=== PATIENT | male | born 1970 | race Caucasian/White ===

== ENCOUNTER 2018-11-15 18:08 | Emergency (ER) | payer OTHER ==
[2018-11-15 18:15] VITALS: BP 151/89
--- NOTE | 2018-11-15 18:17 | EDPHY ---
H & P Stated Complaint: fever, body aches Time Seen by Provider: 11/15/18 18:17 - Personal History Current Tetanus/Diphtheria Vaccine: Yes Current Tetanus Diphtheria and Acellular Pertussis (TDAP): Yes - Medical/Surgical History Hx Asthma: No Hx Chronic Respiratory Disease: No Hx Diabetes: No Hx Cardiac Disease: Yes Hx Renal Disease: No Hx Cirrhosis: No Hx Alcoholism: No Hx HIV/AIDS: No Hx Splenectomy or Spleen Trauma: No Other PMH: htn, L knee surgery, L5-S1 fusion - Social History Smoking Status: Never smoked Constitutional: Initial Vital Signs Temperature (C) 38.3 C 11/15/18 18:13 Heart Rate 97 11/15/18 18:13 Respiratory Rate 16 11/15/18 18:13 Blood Pressure 151/89 H 11/15/18 18:13 O2 Sat (%) 94 11/15/18 18:13 O2 Delivery Mode Room Air Allergies/Adverse Reactions: codeine [Codeine] Allergy (Mild, Verified 11/15/18 18:12) Home Medications: Medication Instructions Recorded AMLODIPINE BESYLATE/BENAZEPRIL 03/18/14 Hydrochlorothiazide 03/18/14 Dayquil 11/15/18 Oseltamivir Phosphate [Tamiflu 75 75 mg PO BID #10 cap 11/15/18 mg (*)] Medical Decision Making ED Course/Re-evaluation: CHIEF COMPLAINT: Fever, body aches HISTORY OF PRESENT ILLNESS: The patient is a 47 y/o male complaining of fever and body aches onset several days ago. The patient has been taking care of his girlfriend and her daughter who both tested positive for the flu. Today he developed a fever and became concerned that the also had the flu. He denies receiving the influenza vaccination. No cough, headache, chest pain, shortness of breath, abdominal pain , urinary or bowel complaints, numbness, paresthesias. REVIEW OF SYSTEMS: A comprehensive 10 system review of systems is otherwise negative aside from elements mentioned in the history of present illness and medical decision making. PHYSICAL EXAM: HR, BP, O2 Sat, RR. Temp noted General Appearance: Alert, well hydrated, appropriate, and non-toxic appearing. Head: Atraumatic without scalp tenderness or obvious injury Eyes: Pupils equal, round, reactive to light and accommodation, EOMI, no trauma , no injection. Ears: Clear bilaterally, no perforation, normal landmarks Nose: Atraumatic, no rhinorrhea, clear. Throat: There is no erythema or exudates, no lesions, normal tonsils, mucus membranes moist. Neck: Supple, 2+ carotid upstroke, nontender, no lymphadenopathy. Respiratory: No retractions, no distress, no wheezes, and no accessory muscle use. Lungs are clear to auscultation bilaterally. Cardiovascular: Regular rate and rhythm, no murmurs, rubs, or gallops. Bilateral carotid, radial, dorsalis pedis, and posterior tibial pulses intact. Good capillary refill all extremities. Gastrointestinal: Abdomen is soft, nontender, non-distended, no masses, no rebound, no guarding, no peritoneal signs. Musculoskeletal: Normal active ROM of all extremities, atraumatic. Neurological: Alert, appropriate, and interactive. The patient has normal DTRs and non-focal cranial nerves, motor, sensory, and cerebellar exam. Skin: No rashes, good turgor, no nodules on palpation. Past medical history: Denies Past surgical history: L5-S1 fusions, knee surgery Family history: Denies Social history: Lives in [place], works at , single DIAGNOSTICS/PROCEDURES/CRITICAL CARE TIME: Not indicated DIFFERENTIAL DIAGNOSIS: The differential diagnosis for the patient's fever included but was not limited to pneumonia, urinary tract infection, viral syndrome, meningitis, and sepsis. MEDICAL DECISION MAKING: The patient is a 47 y/o male presenting with fever and body aches onset several days ago. He has a normal physical exam. I suspect he has the flu as he has been around people who tested positive for the flu and has classic flu symptoms. He is requesting Tamiflu, which I have prescribed him. Return precautions provided; patient is comfortable with this plan. Departure - Departure Disposition: Home, Routine, Self-Care Clinical Impression: Viral syndrome, Flu Condition: Good Instructions: Influenza (ED), Viral Syndrome (ED) Additional Instructions: 1. Take Tamiflu as prescribed. 2. Follow-up with your primary doctor within 72 hours. 3. Return to the Emergency Department for fever, chest pain, shortness of breath , increasing pain or other worsening of condition. Referrals: REJI COTTRELL [Primary Care Provider] - As per Instructions Prescriptions: Oseltamivir Phosphate [Tamiflu 75 mg (*)] 75 mg PO BID #10 cap Report Scribed for: Brant Vargas Report Scribed by: Amarilis Cruz Date of Report: 11/15/18 Time of Report: 18:20
[2018-11-15] MEDS ORDERED: OSELTAMIVIR PHOSPHATE 75 MG CAP PO ONE (18:22)
== END 2018-11-15 18:34 | disposition home or self-care (01) ==
DX: B34.9 Viral infection, unspecified (principal); J10.1 Influenza due to other identified influenza virus with other respiratory manifestations